=== PATIENT | male | born 1970 | race Caucasian/White ===

== ENCOUNTER → 2025-03-12 08:18 | Outpatient (CLI) | payer OTHER, SELFPAY ==
--- NOTE | 2025-03-12 08:20 | DI.RAD.S_ITS ---
PROCEDURE: XR HIP W PEL IF DONE RT 2V INDICATIONS: chronic right hip pain, worsening TECHNIQUE: AP pelvis with lateral view(s) of the right hip(s). COMPARISON: None. FINDINGS: Bones: No fractures or dislocations. Pelvic ring appears intact. No suspicious bony lesions. Mild degenerative changes of the left hip. Severe degenerative changes of the right hip with near complete joint space loss superiorly. Subchondral sclerosis noted on both sides of the right femoroacetabular joint. Prominent marginal osteophyte formation. Soft tissues: The visualized bowel gas pattern is normal. No suspicious soft tissue calcifications. IMPRESSION: No acute osseous abnormalities. Mild left and severe right bilateral hip osteoarthrosis. Dictated by: Stanley Wood M.D. on 03/12/2025 at 14:50 Approved by: Stanley Wood M.D. on 03/12/2025 at 14:51
[2025-03-12 09:22] LABS: Add Manual Diff / Slide Review NO; Alanine Aminotransferase 30 IU/L (<50); Albumin 4.5 g/dL (3.5-5.0); Albumin Globulin Ratio 1.6 (1.0-2.8); Alkaline Phosphatase 44 U/L (38-126); Blood Urea Nitrogen 11 mg/dL (9-20); Calcium 9.4 mg/dL (8.4-10.2); Carbon Dioxide 26 mmol/L (22-32); Chloride 105 mmol/L (98-107); Cholesterol 223 mg/dL (140-199); Estimated Glomerular Filt Rate > 60 mL/min (>60); Globulin 2.8 g/dL (1.7-4.1); Glucose 100 mg/dL (70-99); HDL Cholesterol 52 mg/dL (40-60); HEMOLYSIS < 15 (0-50); Hematocrit 47.3 % (41-53); Hemoglobin 16.2 g/dL (13.5-17.5); Lymphocytes Absolute Auto 1400 /uL (1100-4500); Mean Corpuscular HGB Conc 34.3 % (30-36); Mean Corpuscular Hemoglobin 31.2 PG (26-34); Mean Corpuscular Volume 91.0 fL (80-100); Platelet Count 195 X10^3/uL (150-400); Potassium 4.5 mmol/L (3.4-5.1); Sodium 138 mmol/L (137-145); Total Protein 7.3 g/dL (6.3-8.2); Triglycerides 111 mg/dL (35-150)
== END ==
PROVIDERS: PCP Family Medicine; Referring Provider Family Medicine; Visit Provider Family Medicine
DX: Z00.00 Encounter for general adult medical examination without abnormal findings (principal); Z12.5 Encounter for screening for malignant neoplasm of prostate; M25.551 Pain in right hip; G89.29 Other chronic pain; E78.5 Hyperlipidemia, unspecified; Z87.898 Personal history of other specified conditions
CPT/HCPCS: 36415; 73502; 80053; 80061; 85025; G0103

== ENCOUNTER → 2025-06-22 10:08 | Outpatient (CLI) | payer OTHER, SELFPAY ==
--- NOTE | 2025-06-22 10:09 | DI.ECHO.S_ITS ---
[facility]+ [facility] : : [address] : : [place] : : [id number] : : Phone: [phone] Echocardiogram Report + + :Name: STEFFI JACOBS Study Date: 06/22/2025 Height: 70 in : :Hospital ReadingLocation: Weight: 210 lb : : Gender: Male BSA: 2.1 m2 : :: 1970 Age: 55 yrs BP: 137/78 mmHg: :Reason For Study: Systolic murmur : :Ordering Physician: WENDY, : :SISSY Performed By: Sheng Perez : :Referring: SISSY NGUYEN : + + Interpretation Summary The left ventricle is normal in size and wall thickness. Left ventricular systolic function is normal. The ejection fraction is estimated to be 55-60%. There are no focal wall motion abnormalities. Grade I diastolic dysfunction with normal left atrial pressure. The right ventricle is mildly dilated. The right ventricular systolic function is normal. The right ventricular systolic pressure is estimated to be at least 38 mmHg based on an estimated right atrial pressure of 3 mm Hg. The left atrial size is normal. The ascending aorta is mildly enlarged. Procedure: A two-dimensional transthoracic echocardiogram with color flow and Doppler was performed. The study quality was technically adequate. The heart rate ranged between 66-71 bpm during the study. Left Ventricle: The left ventricle is normal in size and wall thickness. Left ventricular systolic function is normal. The ejection fraction is estimated to be 55-60%. There are no focal wall motion abnormalities. Grade I diastolic dysfunction with normal left atrial pressure. Right Ventricle: The right ventricle is mildly dilated. The right ventricular systolic function is normal. Atria: The left atrial size is normal. Right atrial size is normal. There is no Doppler evidence for an interatrial shunt. Mitral Valve: The mitral valve leaflets appear to open well. There is no mitral valve stenosis. There is trace mitral regurgitation. Aortic Valve: The aortic valve is trileaflet. The aortic valve opens well. There is no aortic valve stenosis. No aortic regurgitation is present. Tricuspid Valve: The tricuspid valve leaflets are thin and pliable. There is mild tricuspid regurgitation. The right ventricular systolic pressure is estimated to be at least 38 mmHg based on an estimated right atrial pressure of 3 mm Hg. Pulmonic Valve: The pulmonic valve is not well seen, but is grossly normal. There is trace pulmonic regurgitation. Great Vessels: The aortic root is normal size. The ascending aorta is mildly enlarged. The aortic arch could not be visualized. The pulmonary is not well visualized. The IVC is of normal diameter and collapses greater than 50% with a sniff. This suggests a low right atrial pressure of 3 mm Hg. Pericardium/ Pleura There is no pericardial effusion. MMode/2D Measurements & Calculations LVIDd: 5.3 cm LVOT diam: 2.1 cm LVIDs: 3.2 cm Ao root diam: 3.1 cm FS: 38.3 % asc Aorta Diam: 3.8 cm IVSd: 0.85 cm LVPWd: 0.91 cm LV melton. diameter/BSA (cm/m^2): 2.5 LV sys. diameter/BSA (cm/m^2): 1.5 LA A2 area: 18.5 cm2 RA long axis: 5.1 cm LA A4 area: 18.4 cm2 RA area: 15.7 cm2 LA length (vol): 5.6 cm RA vol: 40.9 ml LA vol: 51.7 ml RA : 19.2 ml/m2 LA vol index: 24.3 ml/m2 IVC diam: 1.3 cm RVD1 (basal): 3.7 cm RVD2 (mid): 3.5 cm TAPSE: 2.5 cm Doppler Measurements & Calculations Ao V2 max: 148.1 cm/sec LVOT Max Harvey: 105.0 cm/sec Ao V2 mean: 106.5 cm/sec LV V1 max P.4 mmHg Ao max P.8 mmHg LV V1 VTI: 20.9 cm Ao mean P.1 mmHg LAURENCE(I,D): 2.4 cm2 Ao V2 VTI: 30.7 cm LAURENCE(V,D): 2.5 cm2 sev ratio: 0.68 LAURENCE indexed to BSA (cm^2/m^2): 1.1 MV E max harvey: 68.3 cm/sec TR max harvey: 294.2 cm/sec MV A max harvey: 79.9 cm/sec TR max P.6 mmHg MV E/A: 0.86 PA V2 max: 171.0 cm/sec Med Peak E' Harvey: 6.6 cm/sec PA V2 mean: 113.8 cm/sec E/E' med: 10.4 PA mean P.3 mmHg Lat Peak E' Harvey: 8.5 cm/sec PA pr(Accel): 19.9 mmHg E/E' lat: 8.1 E/e' average: 9.2 MV dec time: 0.16 sec SV(LVOT): 73.5 ml Reading Physician:01:10 PM
== END ==
LOC: ECHO 10:09
PROVIDERS: PCP Family Medicine; Referring Provider Family Medicine; Visit Provider Family Medicine
DX: I07.1 Rheumatic tricuspid insufficiency (principal); I77.89 Other specified disorders of arteries and arterioles; R01.1 Cardiac murmur, unspecified; Z82.49 Family history of ischemic heart disease and other diseases of the circulatory system
CPT/HCPCS: 93306

== ENCOUNTER → 2025-08-13 09:40 | Outpatient (CLI) | payer OTHER, SELFPAY ==
[2025-08-13 10:27] LABS: Add Manual Diff / Slide Review NO; Hematocrit 46.5 % (41-53); Hemoglobin 16.3 g/dL (13.5-17.5); Lymphocytes Absolute Auto 1800 /uL (1100-4500); Mean Corpuscular HGB Conc 35.1 % (30-36); Mean Corpuscular Hemoglobin 31.0 PG (26-34); Mean Corpuscular Volume 88.5 fL (80-100); Platelet Count 221 X10^3/uL (150-400)
[2025-08-13 10:35] LABS: Hemoglobin A1C% w Est Avg Glu 5.2 % (4.0-6.0)
[2025-08-13 10:59] LABS: Albumin 4.2 g/dL (3.5-5.0); Blood Urea Nitrogen 13 mg/dL (9-20); Calcium 9.0 mg/dL (8.4-10.2); Carbon Dioxide 26 mmol/L (22-32); Chloride 105 mmol/L (98-107); Estimated Glomerular Filt Rate > 60 mL/min (>60); Glucose 93 mg/dL (70-99); HEMOLYSIS < 15 (0-50); Potassium 4.5 mmol/L (3.4-5.1); Sodium 139 mmol/L (137-145)
[2025-08-13 11:06] LABS: Prealbumin 30.8 mg/dL (17.6-36.0)
[2025-08-13 11:16] LABS: Vitamin D 25 Hydroxy (D3) 35.7 ng/mL (30.0-100.0)
== END ==
PROVIDERS: PCP Family Medicine; Referring Provider Orthopaedic Surgery Adult Reconstructive Orthopaedic Surgery; Visit Provider Orthopaedic Surgery Adult Reconstructive Orthopaedic Surgery
DX: Z01.818 Encounter for other preprocedural examination (principal); M25.551 Pain in right hip; G89.29 Other chronic pain; M16.11 Unilateral primary osteoarthritis, right hip
CPT/HCPCS: 36415; 80048; 82040; 82306; 83036; 84134; 85025